=== PATIENT | male | born 1975 | race Caucasian/White ===

== ENCOUNTER → 2022-11-14 08:48 | Outpatient (BNVA) | payer OTHER, SELFPAY | PROVIDERS: Family Provider Nurse Practitioner Family; PCP Nurse Practitioner Family; Visit Provider Otolaryngology | DX: J34.2 Deviated nasal septum (principal); M95.0 Acquired deformity of nose | CPT/HCPCS: 99203 ==

== ENCOUNTER → 2022-12-18 13:29 | Outpatient (BNVA) | payer OTHER, SELFPAY | PROVIDERS: Family Provider Nurse Practitioner Family; PCP Nurse Practitioner Family; Visit Provider Otolaryngology | DX: J34.2 Deviated nasal septum (principal); M95.0 Acquired deformity of nose | CPT/HCPCS: 99214; 99215 ==

== ENCOUNTER 2022-12-21 08:25 | Day surgery (SDC) | payer OTHER, SELFPAY ==
[2022-12-20 11:17] VITALS: BMI 21.2
[2022-12-21] VITALS (11 sets, daily range): BP systolic 106–175; BP diastolic 82–115; PULSE 68–93; RESP 12–20; TEMP 36.3–36.7; O2SAT 91–99
--- NOTE | 2022-12-21 09:39 | P.ANESASSM_ITS ---
Pre-Anesthetic Assessment Height/Weight: Height 1.93 m Weight 79.152 kg Temp Pulse Resp BP Pulse Ox O2 Del Method 97.4 F L 68 16 106/82 99 Room Air 12/21/22 08:44 12/21/22 08:44 12/21/22 08:44 12/21/22 08:44 12/21/22 08:44 12/21/22 08:48 Preop Diagnosis: Obstructive deviated nasal septum Operation Date: 12/21/22 09:55 Proposed Procedures p Septoplasty(Not Applicable) - Noah Tay MD Familial anesthetic complications: None Was Beta J Luis taken within 24 hours: N/A Was Clonidine taken within 24 hours: N/A Last intake: Intake Last Liquid Date 12/20/22 Last Liquid Time 22:30 Last Solid Date 12/20/22 Last Solid Time 22:30 Social No alcohol and No tobacco Exam alert, oriented x 3, clear to auscultation bilaterally and regular rate & rhythm Airway Mallampati: Class II Dentition: full Anesthetic Plan ASA status: 2 Anesthesia: General Other: alpha-gal allergy, but very low to no reaction at all to milk and animal products. states he eats meat all the time and in the past it had only every resulted in 'stomach problems. Even this has improved since 6 months ago Risk of > 500 ml blood loss (7ml/kg in children): No Medications/Allergies Home Medications Medication Instructions Recorded Confirmed Last Taken Type No Known Home Medications 12/20/22 12/20/22 Unknown History Allergies Allergy/AdvReac Type Severity Reaction Status Date / Time No Known Allergies Allergy Verified 12/20/22 10:59 [facility] Anesthesia Medical History Allergy to alpha-gal Social History Smoking and tobacco status: never smoked Data Anesthesia Cardiac Studies: No Data to Display
[2022-12-21] MEDS: sodium chloride 0.9% 1,000 ML 30 ML IV (09:44)
--- NOTE | 2022-12-21 09:57 | W.PM.OPSUD ---
Surgery/Procedure H&P Update DATE OF PROCEDURE: December 21, 2022 DATE H&P PERFORMED: 12/18/22 H&P UPDATE INFORMATION: I have reviewed H&P completed within last 30 days, I have examined patient prior to procedure and No changes to prior documentation CHANGES TO PREVIOUS DOCUMENTATION: No changes PREOP DIAGNOSIS: Obstructive deviated nasal septum PRIMARY INDICATION FOR PROCEDURE: Nasal dyspnea with deviated nasal septum and corresponding external nasal deformity. PLANNED PROCEDURE: Operation Date: 12/21/22 09:55 Proposed Procedures p Septoplasty(Not Applicable) - Noah Tay MD
[2022-12-21] MEDS: ceFAZolin 2,000 MG in sodium chloride 0.9% (plus) 50 ML 100 MG IV (10:28)
--- NOTE | 2022-12-21 10:55 | SUR.OPER ---
DR GOMES INJECTED 11.9ML OF 2% LIDOCAINE WITH EPI INTO THE NOSE.
[2022-12-21] MEDS: neomycin-poly-bacitracin oint 28 gm 1 APPLIC TOPICAL (10:59)
[2022-12-21] MEDS: oxymetazoline 0.05% Nasal Spray 15 mL 1 SPRAY NOSTRIL-B (11:00)
--- NOTE | 2022-12-21 11:24 | PM.OP ---
Operative Report Date of procedure: December 21, 2022 Pre-op diagnosis: Preop Diagnosis Obstructive deviated nasal septum Post-op diagnosis: Same Post-op findings: Deviated nasal septum convex to left concave on right with large inferior spur to right. Septum out of columellar area to right side anteriorly Procedure done: Septoplasty Implants: 2 Telfa packs and 2 septal splints Specimens removed/disposition: Cartilage and bone from septum Pathology: Nothing for pathology Surgeon: Noah Tay MD Anesthesia: General and Local Estimated blood loss: 20 mL Complications: No complications encountered Findings: Patient had the anteriormost septum displaced out of the columellar to the right side. The anterior septum was fractured horizontally about two thirds the distance from the floor to the superior aspect. Large septal spur both bone and cartilage to the right side inferiorly. Convex band of the quadrangular cartilage to the left. 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 Found to have a significantly deviated nasal septum with abnormal columellar region very widespread and distorted to the right side. The combination of that and the deviated septum caused him to have extreme nasal dyspnea. Patient is being brought to the operating room at this time to undergo a septoplasty. The procedure its risks and complications of been explained in detail to the patient. He understands the risks to include bleeding and infection and numbness and scarring and swelling and bruising and septal hematoma or abscess or perforation. Also potential change in sense of smell and nasal dryness and potential need for additional treatment in the future. He understands that this procedure is not being done for cosmesis of the nose but for functional purposes. He also understands the risks associated with anesthesia. With these things understood informed consent was granted and witnessed. Procedure: Description of procedure: The patient was placed on the operating table in the supine position. Adequate general endotracheal tube anesthesia was obtained. The patient was given Ancef IV for prophylaxis and Decadron to help with postoperative edema. All medications and injectables used in this procedure were checked for problems dealing with his alpha-gal allergy reported in the past. Even though he says he has not had a problem a long time and is eating red meat we still went through that process. The patient was repositioned into a semirecumbent position. A timeout was accomplished identifying the patient date of plan procedure allergies fire risk and medications given. With all in agreement the procedure continued. The patient's nose was packed with 6 cottonoids soaked in 12-hour Afrin. Nasal hairs were trimmed with scissors. The Afrin packs were removed and the septum was infiltrated with local. A total of 11.9 mL of 2% Xylocaine with 1-100,000 epinephrine was utilized. Afrin packs were reapplied to the nose. Patient was then prepped and draped in usual fashion. The Afrin packs were once again removed from the nose. It was decided to create a right hemitransfixion incision which was carried down to the septal cartilage. A mucoperichondrial periosteal flap was then raised on the right side in all directions. An anterior pocket was created between the medial crura of the lower lateral cartilage. This allowed for the anteriormost septum to be placed between those crura and held in place as it normally should be. There was a previous fracture about two thirds the distance up the anteriormost segment. Some of that was trimmed and shortened. Then a half round knife was used to incise about 2 mm above the contact of the quadrangular cartilage with the maxillary crest. This cartilage was excised anterior to posterior with Lorie forceps. Then the quadrangular cartilage was disarticulated from the perpendicular plate of the ethmoid and vomer and a posterior tunnel created on the left side. Deviated bony spur was resected from the posterior aspect and trimmed in the area just under the quadrangular cartilage. Excess tissue was removed from the anteriormost aspect of the posterior septum. This now allowed the adjusted quadrangular cartilage to lock in place both anteriorly and posteriorly. A drain wall was created inferiorly on the right side to prevent hematoma formation. A [place] elevator was able to be passed through both nasal chambers without obstruction all the way to the nasopharynx. The columellar area was sutured through and through to itself and to hold the anterior septal cartilage in place. Then the right hemitransfixion incision was closed loosely with interrupted 4-0 chromic suture. Then 2 septal splints were coated with Neosporin and 1 was applied each side of the septum. These were sutured in a through and through fashion with 3-0 Prolene. The anteriormost portion was placed through the anterior septal cartilage to hold it in place between the medial crura of the lower lateral cartilages. Then 2 Telfa packs were cut to size coated with Neosporin and 1 was applied each side of the septum. The face was cleansed. A drip pad was applied under the nose. Drapes were removed. The mouth and oropharynx were suctioned clean. No active bleeding was encountered. Patient was returned to anesthesia for wake-up and extubation. Patient tolerated the procedure well had an estimated blood loss of 20 mL and arrived in recovery in stable condition.
--- NOTE | 2022-12-21 12:24 | ANE.PACU2 ---
Inpatient post-anesthesia follow up: Airway intact: Yes Vital signs: Temperature 97.6 F Pulse Rate 73 Respiratory Rate 16 Blood Pressure 144/94 Pulse Oximetry 98 Oxygen Delivery Me thod Room Air Oxygen Flow Rate 6 Fraction of Inspir ed Oxygen Hydration adequate: Yes Nausea and vomiting: No Pain level: 1 Mental status: Baseline Additional Comments: Patient experienced emergence delirium upon awakening in PACU. Patient displayed violent behaviors towards staff such as punching and grasping. Please refer to anesthesia record for medication treatment during this period, as he was quite refractory to treatments. Patient is currently oriented.
[2022-12-21] MEDS: fentaNYL 50 mcg/mL INJ 2mL IVP (12:28)
--- NOTE | 2022-12-21 12:28 | SUR.PHASEII ---
12:25 PT RE-MEDICATED FOR PAIN PER DOCTOR Dodge. VENTILATING WELL. PO FLUIDS GIVEN.
--- NOTE | 2022-12-21 13:48 | ANE.PACU2 ---
Inpatient post-anesthesia follow up: Airway intact: Yes Vital signs: Temperature 97.5 F Pulse Rate 80 Respiratory Rate 18 Blood Pressure 153/109 Pulse Oximetry 99 Oxygen Delivery Me thod Room Air Oxygen Flow Rate 6 Fraction of Inspir ed Oxygen Hydration adequate: Yes Nausea and vomiting: No Pain level: 1 Mental status: Baseline
--- NOTE | 2022-12-21 14:10 | SUR.PHASEII ---
14:00 Rx ANTIBIOTIC CALLED TO [facility] FOR PATIENT.
== END 2022-12-21 13:45 | disposition home or self-care (01) ==
PROVIDERS: PCP Nurse Practitioner Family; Visit Provider Otolaryngology
PROC: (CPT 30520; principal; 2022-12-21 09:45)
DX: J34.2 Deviated nasal septum (principal); J34.89 Other specified disorders of nose and nasal sinuses
CPT/HCPCS: 30520; J0690; J1100; J1170; J1790; J2250; J2405; J2704; J2710; J3010; J3490; J7030

== ENCOUNTER → 2022-12-29 09:32 | Outpatient (BNVA) | payer OTHER, SELFPAY | PROVIDERS: PCP Nurse Practitioner Family; Visit Provider Otolaryngology | DX: Z48.810 Encounter for surgical aftercare following surgery on the sense organs (principal) | CPT/HCPCS: 99024 ==

== ENCOUNTER → 2023-01-10 15:30 | Outpatient (BNVA) | payer OTHER, SELFPAY | PROVIDERS: PCP Nurse Practitioner Family; Visit Provider Otolaryngology | DX: Z48.810 Encounter for surgical aftercare following surgery on the sense organs (principal); M95.0 Acquired deformity of nose; J34.2 Deviated nasal septum | CPT/HCPCS: 99024 ==

== ENCOUNTER 2023-03-03 19:20 | Emergency (ER) | payer SELFPAY ==
[2023-03-03 19:40] VITALS: BP 96/60; PULSE 78; RESP 16; TEMP 36.4; O2SAT 95; BMI 22.5
--- NOTE | 2023-03-03 20:09 | ED_ITS ---
HPI - Syncope General: Chief Complaint: Syncope Stated Complaint: Fall/Seizure Time Seen by Provider: 03/03/23 19:52 History of Present Illness: 47-year-old male presents emergency room with left ear pain after a fall. Describes the pain as sharp aching sensation with severity of 9 out of 10. Wrist pain with full range of motion and weightbearing. Denies any other injury. Denies any head injury, loss of consciousness, chest pain, back pain or neck pain. Review of Systems General: Reports: 10 or more systems reviewed and unremarkable except in HPI and below Musc: Reports: extremity pain (left leg pain ) and joint pain (left hip); Denies: neck pain or back pain PFSH ED PFSH: Medical History Allergy to alpha-gal Surgical History History of nasal septoplasty Social History Smoking and tobacco status: never smoked Physical Exam Const: GENERAL APPEARANCE: cooperative, well developed and other (pt in pain ); not disheveled Chest: COMMONS NORMALS: normal inspection of the chest, normal palpation of entire chest wall, normal inspection of the breasts and normal palpation of the breasts Breast/axilla inspection: Yes normal inspection of the breasts BREAST/AXILLA PALPATION: Yes normal palpation of the breasts Resp: COMMON NORMALS: normal respiratory effort, No retractions, No use of accessory muscles, clear to auscultation bilaterally and percussion normal AUSCULTATION: clear to auscultation bilaterally PERCUSSION: percussion normal GI: COMMON NORMALS: Normal to inspection, nondistended, normoactive bowel sounds present, Soft to palpation, non-tender, No hepatosplenomegaly present, no masses and no bruits PALPATION: Yes Soft to palpation and Yes No hepatosplenomegaly present : COMMON NORMALS: Yes no CVA tenderness BLADDER/KIDNEY EXAM: Yes no CVA tenderness Back/Pelvis: COMMON NORMALS: no CVA tenderness, thoracic and lumbar spine normal to inspection, no thoracic nor lumbar tenderness, thoraco-lumbar ROM normal and straight leg raise negative bilaterally Extremity: OTHER: Pain on the lateral aspect of the left hip. The range of motion at the left hip. Severe pain with range of motion. Skin: COMMON NORMALS: no wounds, turgor normal, no jaundice, no petechiae and no mottling GENERAL SKIN EXAM: turgor normal Course Vital Signs: Vital signs: Vital Signs Temperature 97.5 F L 03/03/23 19:40 Pulse Rate 78 03/03/23 19:40 Respiratory Rate 16 03/03/23 19:40 Blood Pressure 96/60 03/03/23 19:40 Pulse Oximetry 95 03/03/23 19:40 Oxygen Delivery Me thod Room Air 03/03/23 19:40 MDM - Syncope Medical Decision Making Patient was made comfortable emergency room. CT scan was ordered with IV pain medication. Awaiting for the orders patient decided to leave AGAINST MEDICAL ADVICE. Patient was very agitated and aggressive towards the staff. Differential Diagnosis Likely dehydration (Fracture, dislocation, sprain, strain) Discharge Plan Discharge Patient Disposition: Left Against Medical Advice Clinical Impression: Arthralgia of hip, left, Acute pain of left hip Condition: Stable Prescriptions: No Action tramadol 50 mg tablet 50 mg PO Q6H PRN (Reason: pain) Qty: 30 0RF Referrals: Jodi Diamond FNP-C [Primary Care Provider] - Coding Level of Care Code ED Jig And Fixture Builder Apprentice for Cassi Thrasher
== END 2023-03-03 20:15 | disposition left against medical advice (07) ==
PROVIDERS: Emergency Provider Family Medicine; PCP Nurse Practitioner Family
DX: M25.552 Pain in left hip (principal); Z53.21 Procedure and treatment not carried out due to patient leaving prior to being seen by health care provider
CPT/HCPCS: 99283

== ENCOUNTER 2025-01-15 11:34 | Emergency (ER) | payer OTHER, SELFPAY ==
--- NOTE | 2025-01-15 11:37 | ECG_ITS ---
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 Measurements Intervals [place] Rate: 73 P: 83 [place]: 157 QRS: 79 QRSD: 105 T: 79 QT: 352 QTc: 389 Interpretive Statements SINUS RHYTHM WITH SINUS ARRHYTHMIA INCOMPLETE RIGHT BUNDLE BRANCH BLOCK [90+ ms QRS DURATION, TERMINAL R IN V1/V2, 40+ ms S IN I/aVL/V4/V5/V6] No previous ECG available for comparison Electronically Signed On 01-20-2025 11:50:42 CDT by Mayito Rao M.D. [email or web address]
[2025-01-15 11:39] VITALS: BP 113/72; PULSE 87; RESP 17; TEMP 36.6; O2SAT 99; BMI 22.5
--- NOTE | 2025-01-15 11:58 | XR_ITS ---
WS: [id number] Portable AP upright chest, 01/15/2025 Clinical Data: chest pain Comparison: None. Findings: No nodules, masses or effusions are seen. The heart is normal. The pulmonary vascularity is not increased. No pneumonia or pneumothorax is seen. Monitor leads are on the chest wall. XR/XR chest 1V portable [id number] Impression: Negative chest.
--- NOTE | 2025-01-15 11:58 | W.ED.CHESTPA ---
HPI - Chest Pain General: Chief Complaint: Chest Pain Stated Complaint: cp Time Seen by Provider: 01/15/25 11:44 History of Present Illness: This patient is a 49-year-old white male who presents to the emergency department complaining of left-sided chest pressure with deep breathing. He states that started last night. No recent injury. No cough. No fever. No shortness of breath. He has no chronic medical problems. He does smoke. Related Data Home Medications ?Medication ?Instructions ?Recorded ?Confirmed No Known Home Medications 01/15/25 01/15/25 Allergies Allergy/AdvReac Type Severity Reaction Status Date / Time No Known Allergies Allergy Verified 01/15/25 11:41 Review of Systems General: Reports: 10 or more systems reviewed and unremarkable except in HPI and below Card: Reports: chest pain [facility] ED PFSH: Medical History Allergy to alpha-gal Surgical History History of nasal septoplasty Social History Smoking and tobacco/nicotine status: never used tobacco/nicotine Physical Exam Const: COMMON NORMALS: no acute distress, patient oriented x3 and no limitations GENERAL APPEARANCE: cooperative and comfortable HENMT: COMMON NORMALS: normocephalic, atraumatic, Normal nasal mucous membranes and turbinates present, moist oral mucous membranes and oropharynx normal HEAD & SCALP: normal to inspection, normocephalic and atraumatic FACE & SINUS: normal facial exam NOSE: Normal nasal mucous membranes and turbinates present Eye: COMMON NORMALS: Equal, round and reactive pupils present, EOMs intact bilaterally and conjunctivae normal GENERAL EYE: appearance normal, both eyes and all related structures CONJUNCTIVA: Yes conjunctivae normal PUPIL: Yes Equal, round and reactive pupils present Neck/C-Spine: COMMON NORMALS: supple and no JVD Chest: OTHER: Palpation of the left chest does reproduce his discomfort. Resp: COMMON NORMALS: normal respiratory effort and clear to auscultation bilaterally AUSCULTATION: clear to auscultation bilaterally Cardio: COMMON NORMALS: no JVD, regular rate, regular rhythm, No gallops present (Cardio), No murmurs present (Cardio) and No rub (Cardio) RATE: regular rate RHYTHM: regular rhythm GI: COMMON NORMALS: Normal to inspection, nondistended, normoactive bowel sounds present, Soft to palpation and non-tender AUSCULTATION: Yes normoactive bowel sounds PALPATION: Yes Soft to palpation : COMMON NORMALS: Yes no CVA tenderness BLADDER/KIDNEY EXAM: Yes no CVA tenderness Back/Pelvis: COMMON NORMALS: no CVA tenderness and thoracic and lumbar spine normal to inspection Extremity: COMMON NORMALS: normal to inspection Neuro: COMMON NORMALS: patient oriented x3 and CN's II-XII intact bilaterally Psych: COMMON NORMALS: mental status grossly normal, Normal thought process present and cooperative THOUGHT PROCESS: Normal thought process present Skin: COMMON NORMALS: no rashes or lesions noted, turgor normal and no jaundice GENERAL SKIN EXAM: no rashes or lesions noted and turgor normal Course Vital Signs: Vital signs: Vital Signs Temperature 97.9 F 01/15/25 11:39 Pulse Rate 73 01/15/25 13:08 Respiratory Rate 17 01/15/25 11:39 Blood Pressure 122/84 01/15/25 13:08 Pulse Oximetry 98 01/15/25 13:08 Oxygen Delivery Me thod Room Air 01/15/25 13:08 MDM - Chest Pain Medical Decision Making EKG revealed normal sinus rhythm with no ST segment abnormalities. Chest x-ray is normal. CBC and BMP were normal. D-dimer less than 0.27. Troponin less than 6. BNP less than 36. Patient was given 30 mg of Toradol IV. This did relieve his chest discomfort. This appears to be chest wall pain. I recommended he take 600 to 800 mg of ibuprofen 3 times per day. Recommended he follow-up with his primary care provider in 1 week for recheck. He was discharged in stable condition. Lab Data 01/15/25 11:52 01/15/25 11:52 Radiology Impressions Chest X-Ray 01/15/25 11:58 Impression: Negative chest. Laboratory Results WBC 4.71 10^3/uL (3.29-11.43) 01/15/25 11:52 RBC 4.69 10^6/uL (3.85-5.65) 01/15/25 11:52 Hgb 15.50 g/dL (11.27-16.99) 01/15/25 11:52 Hct 45.5 % (37-53) 01/15/25 11:52 MCV 97.0 fl (82-101) 01/15/25 11:52 MCH 33.0 pg (27-33) 01/15/25 11:52 MCHC 34.1 g/dL (30-55) 01/15/25 11:52 RDW 11.6 % (12.1-15.1) L 01/15/25 11:52 Plt Count 199 10^3/cmm (157-399) 01/15/25 11:52 MPV 8.9 fL (7.4-10.4) 01/15/25 11:52 Neut % (Auto) 52.8 % 01/15/25 11:52 Lymph % (Auto) 37.4 % 01/15/25 11:52 [place] % (Auto) 7.0 % 01/15/25 11:52 Eos % (Auto) 1.1 % 01/15/25 11:52 Baso % (Auto) 1.3 % 01/15/25 11:52 Neut # (Auto) 2.49 10^3/uL (1.8-7.7) 01/15/25 11:52 Lymph # (Auto) 1.8 10^3/uL (0.8-4.8) 01/15/25 11:52 [place] # (Auto) 0.3 10^3/uL (0.2-0.9) 01/15/25 11:52 Eos # (Auto) 0.1 10^3/uL (0.0-0.8) 01/15/25 11:52 Baso # (Auto) 0.1 10^3/uL (0.0-0.1) 01/15/25 11:52 Nucleated RBC % (auto) 0 % 01/15/25 11:52 Nucleated RBCs # 0.0 /100WBC 01/15/25 11:52 D-Dimer <= 0.27 ug/mLFEU (0-0.59) 01/15/25 11:52 Sodium 141 mmol/L (136-145) 01/15/25 11:52 Potassium 4.5 mmol/L (3.5-5.1) 01/15/25 11:52 Chloride 103 mmol/L (98-107) 01/15/25 11:52 Carbon Dioxide 28 mmol/L (22-29) 01/15/25 11:52 Anion Gap 14.5 (5-19) 01/15/25 11:52 BUN 13 mg/dL (6-20) 01/15/25 11:52 Creatinine 1.0 mg/dL (0.7-1.2) 01/15/25 11:52 GFR Calculation 80.1 mL/min (90-130) L 01/15/25 11:52 Glucose 66 mg/dL (65-115) 01/15/25 11:52 Calculated Osmolality 290 mOsm/kg (285-295) 01/15/25 11:52 Calcium 9.2 mg/dL (8.5-10.5) 01/15/25 11:52 Troponin T Baseline < 6 ng/L (0-15) 01/15/25 11:52 NT-Pro-B Natriuret Pep < 36 pg/mL (0-125) 01/15/25 11:52 All radiology interpretation(s) finalized by discharge Discharge Plan Discharge Patient Disposition: Home Clinical Impression: Chest wall pain Condition: Stable Prescriptions: No Action No Known Home Medications Discharge Orders: Discharge ED (Routine); Ordered 01/15/25 Ordered By: Kilo Kulkarni Referrals: Jodi Diamond FNP-C [Primary Care Provider, Family Practice] Patient Instructions: Chest Wall Pain (ED) Activity Restrictions/Additional Instructions: Take 600 to 800 mg of ibuprofen 3 times per day as needed. Follow-up with primary care provider in 1 week for recheck. Print Language: Mongolian Coding Level of Care Code ED Box Office Attendant for Cassi Thrasher
[2025-01-15 12:05] LABS: Basophils # 0.1 10^3/uL (0.0-0.1); Basophils % 1.3 %; Eosinophils # 0.1 10^3/uL (0.0-0.8); Eosinophils % 1.1 %; Hematocrit 45.5 % (37-53); Lymphocytes # 1.8 10^3/uL (0.8-4.8); Lymphocytes % 37.4 %; Mean Corpuscular HGB Conc 34.1 g/dL (30-55); Mean Platelet Volume 8.9 fL (7.4-10.4); Monocytes # 0.3 10^3/uL (0.2-0.9); Neutrophils # 2.49 10^3/uL (1.8-7.7); Neutrophils % 52.8 %; Nucleated Red Blood Cells % 0 %; Platelet Count 199 10^3/cmm (157-399); Red Blood Count 4.69 10^6/uL (3.85-5.65); Red Cell Distribution Width 11.6 % (12.1-15.1); White Blood Count 4.71 10^3/uL (3.29-11.43)
[2025-01-15 12:17] LABS: D Dimer <= 0.27 ug/mLFEU (0-0.59)
[2025-01-15 12:24] LABS: Troponin(5th) Baseline < 6 ng/L (0-15)
[2025-01-15 12:32] LABS: Anion Gap 14.5 (5-19); Blood Urea Nitrogen 13 mg/dL (6-20); Calcium 9.2 mg/dL (8.5-10.5); Carbon Dioxide 28 mmol/L (22-29); Chloride 103 mmol/L (98-107); Creatinine Clr Calc Pharmacy 110.6261; Glomerular Filtration Rate 80.1 mL/min (90-130); Glucose 66 mg/dL (65-115); NT Pro B Type Natriuretic Pept < 36 pg/mL (0-125); Osmolality Calculated 290 mOsm/kg (285-295); Potassium 4.5 mmol/L (3.5-5.1); Sodium 141 mmol/L (136-145)
[2025-01-15] MEDS: ketorolac 30 mg/mL INJ IVP (13:07)
[2025-01-15 13:08] VITALS: BP 122/84; PULSE 73; O2SAT 98
--- NOTE | 2025-01-15 13:54 | ECG_ITS ---
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
[2025-01-15 14:30] LABS: Troponin 5 2HR < 6.0 ng/L (0-15); Troponin 5 2HR Delta 0 ABS# (0-10)
[2025-01-15 14:33] VITALS: BP 113/86; PULSE 73; O2SAT 99
== END 2025-01-15 14:37 | disposition home or self-care (01) ==
PROVIDERS: Emergency Provider Emergency Medicine; PCP Nurse Practitioner Family
DX: R07.89 Other chest pain (principal)
CPT/HCPCS: 36415; 71045; 80048; 83880; 84484; 85025; 85378; 93005; 96374; 99285; J1885